=== PATIENT | female | born 1965 | race African-American/Black ===

== ENCOUNTER 2020-09-01 08:23 | Emergency (ER) | payer OTHER ==
[2020-09-01 08:32] VITALS: TEMP 98.5; BMI 29.6
[2020-09-01] MEDS ORDERED: SODIUM CHLORIDE 1,000 ML IV STA (08:43)
--- NOTE | 2020-09-01 08:43 | PDOC ---
History of Present Illness - General Chief Complaint: Irregular Heart Beat Stated Complaint: Irregular Heart Beat Time Seen by Provider: 09/01/20 08:39 History Source: Patient Exam Limitations: No Limitations - History of Present Illness Initial Comments: 09/01/20 08:56 55 y.o. F PMHx of Sh[place] and anxiety presenting to to a rapid heartbeat. Patient states she has been getting palpitations and rapid heart beating since May. She states the episodes are often associated with her anxiety and last for ~10 minutes. Her most recent episode started at 10pm last night and has been continuos which had prompted her to comet to the ED. Patient states she recently had a stress test done and was referred to a specialist at [facility]. Patient endorses headache and dizziness associated with the palpitations but denies blurry vision, sob, chest pain, N/V/D PCP: Dr. Woods Specialist:Cardio Dr. Gunter PMHx: Anxiety, shingles, Meds: In Chart Allergies: tomato, seafood Is this a multiple visit Asthma Patient?: No Timing/Duration: 4-6 hours Severity: moderate Past History - Medical History Allergies/Adverse Reactions: Allergies Allergy/AdvReac Type Severity Reaction Status Date / Time raw tomato Allergy Uncoded 09/01/20 08:50 seafood Allergy Uncoded 09/01/20 08:49 Home Medications: Ambulatory Orders NK [No Known Home Medication] 09/01/20 Cardiac Disorders: Yes (irregular heart beat) COPD: No - Psycho-Social/Smoking History Smoking History: Never smoked Have you smoked in the past 12 months: No - Substance Abuse Hx (Audit-C & DAST Scrn) How often the patient has a drink containing alcohol: Never Score: In Men: 4 or > Positive; In Women: 3 or > Positive: 0 Screen Result (Pos requires Nsg. Audit-10AR): Negative In the last yr the pt used illegal drug/Rx for NonMed reason: No Score: Yes response is considered Positive: 0 Screen Result (Positive result requires Nsg. DAST-10): Negative Review of Systems - Review of Systems Able to Perform ROS?: Yes Is the patient limited Romanian proficient: No Constitutional: No: Chills, Fever HEENTM: No: Blurred Vision, Double Vision Respiratory: No: Cough, Shortness of Breath, Stridor, Wheezing Cardiac (ROS): No: Chest Pain, Syncope ABD/GI: No: Constipated, Diarrhea, Nausea, Vomiting : No: Burning, Dysuria Musculoskeletal: No: Back Pain, Neck Pain Neurological: Yes: Headache. No: Numbness, Tingling Hematologic/Lymphatic: No: Easy Bleeding, Easy Bruising *Physical Exam - Vital Signs Last Vital Signs Temp Pulse Resp BP Pulse Ox 98.5 F 120 H 18 172/94 H 100 09/01/20 08:25 09/01/20 08:25 09/01/20 08:25 09/01/20 08:25 09/01/20 08:25 - Physical Exam General Appearance: Yes: Nourished, Appropriately Dressed. No: Apparent Distress Respiratory/Chest: positive: Lungs Clear, Normal Breath Sounds. negative: Chest Tender, Respiratory Distress, Accessory Muscle Use, Crackles, Rales, Stridor, Wheezing Cardiovascular: positive: Regular Rhythm, Tachycardia. negative: Regular Rate, Edema, JVD, Murmur Gastrointestinal/Abdominal: positive: Normal Bowel Sounds, Flat, Soft. negative: Tender, Distended, Guarding, Rebound, Tenderness Musculoskeletal: positive: Normal Inspection. negative: CVA Tenderness Extremity: positive: Normal Inspection. negative: Tender, Coldness, Swelling, Calf Tenderness, Erythema Integumentary: positive: Normal Color, Dry, Warm. negative: Cold, Swelling Neurologic: positive: Fully Oriented, Alert, Normal Response. negative: Confused, Disoriented ED Treatment Course - LABORATORY CBC & Chemistry Diagram: 09/01/20 08:45 09/01/20 08:45 Medical Decision Making - Medical Decision Making 09/01/20 09:05 55 y.o. F PMHx of [place] and anxiety presenting to to a rapid heartbeat. DDx: Hyperthyroid, PE, AVNRT, anxiety Labs: WBC 7.5, Na 141, K 3.9, Alk phos 121, Trop <0.02, TSH 3.81 EKG: Sinus Tachy, QTc 446ms, rate 126 Dispo: d/c Home 09/01/20 09:45 Discharge - Discharge Information Problems reviewed: Yes Clinical Impression/Diagnosis: Tachycardia Condition: Stable Disposition: HOME - Admission No - Follow up/Referral Referrals: Zuleika Woods MD [Nurse Practitioner] - - Patient Discharge Instructions Additional Instructions: You were seen in the emergency department for palpitations and elevated heart rate. Your labs and imaging showed positive findings for elevated heart rate. Please follow up with your primary care physician and or dough molder regarding your visit to the emergency department. If you experience profound headache, chest pain, shortness of breath, blurry vision or vision loss, neause or vomiting please return to the emergency department or call 911. - Post Discharge Activity
--- NOTE | 2020-09-01 08:44 | PDOC ---
Attending Attestation - Resident Resident Name: Paul Figueroa - ED Attending Attestation I have performed the following: I have examined & evaluated the patient, The case was reviewed & discussed with the resident, I agree w/resident's findings & plan, Exceptions are as noted - HPI HPI: 09/01/20 09:30 55y F no pmhx presents with complaint of palpitations. Pt has been having intermittent episodes of palpitations/rabid heart beat since may. She notes the episodes are typically at night and she attributes it to anxiety. She states she has had anxiety for many years, brought on by certain triggers (ie: going onto crowded subways, when subways go under ground) however has not worked since mid january due to COVID. She notes sometimes she feels lightheaded, but denies any associated n/v, sob, cp, abd pain, back pain, diarrhea, melena, bpr. Pt has switched to decaf coffee recently. pt was referred to cardiology as she had a a tachycardic ekg, and has an appt with [facility] on tuesday. denies etoh abuse, smoking, recreational drug use. - Physicial Exam PE: 09/01/20 09:51 exam: [id number]: The patient is awake, alert, and fully oriented, Nontoxic - in no acute distress. HEAD: Normocephalic, atraumatic. EYES: extraocular movements intact, sclera anicteric, conjunctiva clear. ENT: Normal voice, Moist mucous membranes. NECK: Normal range of motion, supple LUNGS: Breath sounds equal, clear to auscultation bilaterally. No wheezes, no rhonchi, no rales. HEART: Regular rate and rhythm, normal S1 and S2 without murmur, rub or gallop. ABDOMEN: Soft, nontender, No guarding, no rebound. No CVA tenderness EXTREMITIES: Normal range of motion, no edema. NEUROLOGICAL: No facial assymetry, Normal speech, PSYCH: Normal mood, normal affect. SKIN: Warm, Dry, normal turgor, - Medical Decision Making 09/01/20 09:51 initial ekg noted for HR of 126. pts HR improved with some fluid labs reviewed suspect possible dehyration as contirubting factor no cp/acs sx will dc the pt with pmd/card fu return precautions were dsicussed Heart Score/ECG Review - ECG Impressions Comment:: 09/01/20 09:52 Twelve-lead EKG was performed and reviewed by me. There is normal sinus rhythm with a rate of 126 twi i inferior/lateral leads Impression: sinus tachycardia Discharge - Follow up/Referral Referrals: Zuleika Woods MD [Primary Care Provider] - - Patient Discharge Instructions - Post Discharge Activity
--- OUTSIDE RECORDS SUMMARY | 2020-09-01 08:50 | XMS ---
:1965 Author Organization [facility] Care Team Providers Name Role Phone ED STAFF PHYSICIAN Unavailable Unavailable ZUNASSIGNED Unavailable Unavailable ED STAFF PHYSICIAN Unavailable Unavailable [email or web address]@, Unavailable Unavailable Re-disclosure Warning The records that you are about to access may contain information from federally- assisted alcohol or drug abuse programs. If such information is present, then the following federally mandated warning applies: This information has been disclosed to you from records protected by federal confidentiality rules (42 CFR part 2). The federal rules prohibit you from making any further disclosure of this information unless further disclosure is expressly permitted by the written consent of the person to whom it pertains or as otherwise permitted by 42 CFR part 2. A general authorization for the release of medical or other information is NOT sufficient for this purpose. The Federal rules restrict any use of the information to criminally investigate or prosecute any alcohol or drug abuse patient.The records that you are about to access may contain highly sensitive health information, the redisclosure of which is protected by Article 27-F of the [facility] Public Health law. If you continue you may haveaccess to information: Regarding HIV / AIDS; Provided by facilities licensed or operated by the [facility] Office of Mental Health; or Provided by the [facility] Office for People With Developmental Disabilities. If such information is present, then the following [facility] mandated warning applies: This information has been disclosed to you from confidential records which are protected by state law. State law prohibits you from making any further disclosure of this information without the specific written consent of the person to whom it pertains, or as otherwise permitted by law. Any unauthorized further disclosure in violation of state law may result in a fine or chcf sentence or both. A general authorization for the release of medical or other information is NOT sufficient authorization for further disclosure. Encounters Encounter Providers Location Date Indications Data Source(s ) Outpatient Attender: 09/02/2020 [facility] ZUNASSIGNEDAdmitter: 03:29:00 PM [facility] ZUNASSIGNEDReferrer: EDT [id number] [email or web address]@, Outpatient Admitter: [id number] 09/02/2020 [facility] [email or web address]@,Referre 12:00:00 AM [facility] r: [id number] EDT [email or web address]@, Emergency Attender: SARAH ED H 01/02/2020 [facility] STAFF 08:04:00 AM Medical Marysol suazo PHYSICIANAttender: EST - STAFF ED STAFF 01/02/2020 PHYSICIANAdmitter: 10:00:00 AM SARAH ED STAFF EST PHYSICIAN Patient discharged. Insurance Providers Payer name Policy type Policy ID Covered Covered constitution party's Policy P tejas / Coverage constitution party ID relationship to [employer] ormation type kraft SELF PAY SP INSURANCE [employer] [employer] [id number] 1 [id number] [facility] [id number] [facility] [id number] [place] Family [id number] S [id number] Planning MKD & EP 3 & 4 Only William Vision [id number] S [id number] MKD Dental [id number] S [id number] 600 [employer] [facility] Medicaid [id number] S [id number] Regular Clinic Visit [employer] [id number] S [id number] [place] Medicaid Problems, Conditions, and Diagnoses Code Display Name Description Problem Type Effective Dates Data Source(s) Y99.9 Unspecified UNSPECIFIED Diagnosis 01/02/2020 [place] [facility] external cause EXTERNAL CAUSE 08:04:00 AM [facility] status STATUS Y92.[address] Diagnosis 01/02/2020 [facility] or not applicable OR NOT APPLICABLE 08:04:00 AM [facility] Y93.9 Activity, ACTIVITY, Diagnosis 01/02/2020 [facility] unspecified UNSPECIFIED 08:04:00 AM [facility] W19.XXXA Unspecified fall, UNSPECIFIED FALL, Diagnosis 01/02/2020 [facility] initial encounter INITIAL ENCOUNTER 08:04:00 AM [facility] S60.211A Contusion of CONTUSION OF Diagnosis 01/02/2020 [facility] right wrist, RIGHT WRIST, 08:04:00 AM EST [facility] [place] initial encounter INITIAL ENCOUNTER S50.01XA Contusion of CONTUSION OF Diagnosis 01/02/2020 [facility] right elbow, RIGHT ELBOW, 08:04:00 AM EST Medic [facility] initial encounter INITIAL ENCOUNTER Social History Code Duration Value Status Description Data Source(s ) Smoking 01/02/2020 Denies Ever completed Denies Ever Smoked [facility] 09:24:00 AM EST Smoked Medical C enter Smoking 01/02/2020 Denies Ever completed Denies Ever Smoked [facility] 09:03:00 AM EST Smoked Medical C enter Smoking 01/02/2020 Denies Ever completed Denies Ever Smoked [facility] 08:07:00 AM EST Smoked Medical C enter Vital Signs ID Date Data Source UNK Name Value Range Interpretation Code Description Data Source(s) Body weight 67.899873 kg 67.088498 kg [facility] Body temperature 36.878875 36.582646 [facility] Respiratory rate 18 /min 18 /min [facility] Oxygen saturation 98 % 98 % [facility] Arterial blood [facility] by Pulse oximetry Heart rate 102 /min 102 /min [facility] Body height 157.968777 157.502320 cm [facility] Diastolic blood 70 mm[Hg] 70 mm[Hg] [facility] Center Systolic blood 146 mm[Hg] 146 mm[Hg] [facility] Center Body mass index 27.0 kg/m2 27.0 kg/m2 [facility] (BMI) [Ratio] Medical Pablo ter
[2020-09-01 09:05] LABS: BASO % 0.3 % (0-2.0); EOS % 0.5 % (0-4.5); HEMATOCRIT 40.1 % (32.4-45.2); HEMOGLOBIN 13.5 GM/dL (10.7-15.3); LYMPH % 30.3 % (8-40); MCH 26.9 pg (25.7-33.7); MCHC 33.7 g/dl (32.0-36.0); MEAN CELL VOLUME 79.8 fl (80-96); MEAN PLT VOLUME 8.4 fl (7.5-11.1); MONO % 7.5 % (3.8-10.2); NEUT % 61.4 % (42.8-82.8); PLATELET COUNT 228 K/MM3 (134-434); RBC 5.03 M/mm3 (3.60-5.2); WHITE BLOOD COUNT 7.5 K/mm3 (4.0-10.0)
[2020-09-01 09:28] VITALS: BP 127/72; PULSE 85
[2020-09-01 09:38] LABS: ALBUMIN 3.7 g/dl (3.4-5.0); ALK PHOS 121 U/L (45-117); ANION GAP 5 MMOL/L (8-16); BILIRUBIN,TOTAL 0.4 mg/dL (0.2-1); BLOOD UREA NITROGEN 15.9 mg/dL (7-18); CALCIUM 9.4 mg/dL (8.5-10.1); CHLORIDE 111 mmol/L (98-107); CO2 25 mmol/L (21-32); CREATININE 0.9 mg/dL (0.55-1.3); GLUCOSE,RANDOM 108 mg/dL (74-106); POTASSIUM 3.9 mmol/L (3.5-5.1); SGOT/AST 13 U/L (15-37); SGPT/ALT 19 U/L (13-61); SODIUM 141 mmol/L (136-145); TOT PROT 7.7 g/dl (6.4-8.2)
--- NOTE | 2020-09-01 11:45 | EKG ---
Test Reason : Blood Pressure : / mmHG Vent. Rate : 126 BPM Atrial Rate : 126 BPM P-R Int : 152 ms QRS Dur : 070 ms QT Int : 308 ms P-R-T Axes : 075 069 -44 degrees QTc Int : 446 ms SINUS TACHYCARDIA BIATRIAL ENLARGEMENT ABNORMAL ECG NO PREVIOUS ECGS AVAILABLE Confirmed by MELLY CADENA MD ([id number]) on 09/01/2020 11:44:41 AM Referred By: Confirmed By:MELLY CADENA MD
== END 2020-09-01 10:03 | disposition home or self-care (01) ==
LOC: JER 08:23
PROC: 3E0337Z Introduction of Electrolytic and Water Balance Substance into Peripheral Vein, Percutaneous Approach (ICD-10-PCS; principal; 2020-09-01)
DX: R00.0 Tachycardia, unspecified (principal)
CPT/HCPCS: 36415; 71045-TC-FY; 80053; 84443; 84484; 85025; 93005; 93010; 99285-25

== ENCOUNTER 2020-10-06 19:22 | Emergency (ER) | payer OTHER ==
[2020-10-06 19:42] VITALS: BP 153/74; PULSE 80; TEMP 98.6; BMI 29.4
[2020-10-06 20:22] LABS: BASO % 0.2 % (0-2.0); EOS % 0.8 % (0-4.5); HEMATOCRIT 40.9 % (32.4-45.2); HEMOGLOBIN 13.2 GM/dL (10.7-15.3); LYMPH % 35.4 % (8-40); MCH 25.4 pg (25.7-33.7); MCHC 32.2 g/dl (32.0-36.0); MEAN CELL VOLUME 79.1 fl (80-96); MEAN PLT VOLUME 8.4 fl (7.5-11.1); MONO % 7.9 % (3.8-10.2); NEUT % 55.7 % (42.8-82.8); PLATELET COUNT 260 K/MM3 (134-434); RBC 5.17 M/mm3 (3.60-5.2); WHITE BLOOD COUNT 8.5 K/mm3 (4.0-10.0)
[2020-10-06 20:30] LABS: INR 1.02 (0.83-1.09); PROTHROMBIN TIME (PATIENT) 12.3 SEC (9.7-13.0)
[2020-10-06 20:34] LABS: CHLORIDE 108 mmol/L (98-107); POTASSIUM 4.3 mmol/L (3.5-5.1); SODIUM 143 mmol/L (136-145)
[2020-10-06 20:36] LABS: CALCIUM 8.8 mg/dL (8.5-10.1); GLUCOSE,RANDOM 94 mg/dL (74-106)
[2020-10-06 20:37] LABS: ALBUMIN 3.7 g/dl (3.4-5.0); ANION GAP 7 MMOL/L (8-16); BLOOD UREA NITROGEN 17.5 mg/dL (7-18); CO2 29 mmol/L (21-32); MAGNESIUM 2.4 mg/dL (1.8-2.4)
[2020-10-06 20:40] LABS: SGOT/AST 14 U/L (15-37); SGPT/ALT 17 U/L (13-61)
[2020-10-06 20:41] LABS: BILIRUBIN,TOTAL 0.2 mg/dL (0.2-1); TOT PROT 7.2 g/dl (6.4-8.2)
[2020-10-06 20:43] LABS: ALK PHOS 128 U/L (45-117)
== END 2020-10-06 22:20 | disposition home or self-care (01) ==
LOC: JER 19:22
DX: R00.2 Palpitations (principal)
CPT/HCPCS: 36415; 80053; 82550; 83735; 84443; 84484; 85025; 85610; 85730; 93005; 93010; 99285-25